=== PATIENT | male | born 1995 | race African-American/Black ===

== ENCOUNTER 2017-05-29 15:57 | Emergency (ER) | payer OTHER ==
[2017-05-29] MEDS ORDERED: LIDOCAINE 1% INJ-PF (10 MG/ML) 30 ML SDV INJ ONE (16:35)
[2017-05-29] MEDS ORDERED: AZITHROMYCIN 250 MG TABLET PO ONE (16:35)
[2017-05-29] MEDS ORDERED: PENICILLIN G BENZATHINE 1.2 MILLION UNIT/2 ML DISP.SYRIN IM ONE (16:35)
[2017-05-29] MEDS ORDERED: CEFTRIAXONE INJ 250 MG VIAL IM ONE (16:35)
--- NOTE | 2017-05-29 16:38 | ER Document Report ---
HPI - HPI Patient complains to provider of: Gonorrhea exposure Onset: Last week Onset/Duration: Gradual Quality of pain: Burning Pain Level: 1 Context: Patient presents reporting that he is ex-girlfriend told him that she tested positive for gonorrhea. Patient states that he has had some burning to the tip of the penis but denies any drainage or discharge. Patient denies any urinary symptoms. Associated Symptoms: Other - Burning to penis. denies: Fever Exacerbated by: Denies Relieved by: Denies Similar symptoms previously: No Recently seen / treated by doctor: No - ROS ROS below otherwise negative: Yes Systems Reviewed and Negative: Yes All other systems reviewed and negative - CONSTITUTIONAL Constitutional: DENIES: Fever - URINARY Urinary: DENIES: Dysuria - DERM Skin Color: Normal Skin Problems: None Past Medical History - General Information source: Patient - Social History Smoking Status: Current Every Day Smoker Frequency of alcohol use: Occasional Drug Abuse: None Occupation: [employer] Family History: Reviewed & Not Pertinent - Medical History Medical History: Negative Surgical Hx: Negative Vertical Provider Document - CONSTITUTIONAL Agree With Documented VS: Yes Exam Limitations: No Limitations General Appearance: WD/WN, No Apparent Distress - INFECTION CONTROL TRAVEL OUTSIDE OF THE [place] IN LAST 30 DAYS: No - HEENT HEENT: Atraumatic, Normocephalic - NECK Neck: Normal Inspection - RESPIRATORY Respiratory: Breath Sounds Normal, No Respiratory Distress O2 Sat by Pulse Oximetry: 99 - CARDIOVASCULAR Cardiovascular: Regular Rate, Regular Rhythm - REPRODUCTIVE Male Genitalia: Normal Inspection Notes: No testicular tenderness, no penile drainage or discharge. No inguinal lymphadenopathy. Normal cremasteric reflex. RN as standby during examination - MUSCULOSKELETAL/EXTREMETIES Musculoskeletal/Extremeties: MAEW - NEURO Level of Consciousness: Awake, Alert, Appropriate Motor/Sensory: No Motor Deficit - DERM Integumentary: Warm, Dry, No Rash Course - Re-evaluation Re-evalutation: 05/29/17 16:36 Offered patient testing for HIV as well as syphilis, patient declined. Patient encouraged to follow-up with the health department if he would like to have additional HIV testing. Patient states that he would like to be treated just in case for syphilis with the antibiotic. - Vital Signs Vital signs: Temp Pulse Resp BP Pulse Ox 98.8 F 73 18 117/72 99 05/29/17 16:07 05/29/17 16:07 05/29/17 16:07 05/29/17 16:07 05/29/17 16:07 Discharge - Discharge Clinical Impression: Concern about STD in male without diagnosis, Exposure to gonorrhea Condition: Stable Disposition: HOME, SELF-CARE Instructions: Azithromycin ([facility]), Gonorrhea ([facility]), Rocephin ([facility]) Additional Instructions: Return immediately for any new or worsening symptoms Followup with your primary care provider, call tomorrow to make a followup appointment Follow-up with the health department if you would like to have HIV testing. Safe sex practices [facility] - Follow up as needed
[2017-05-29 17:47] VITALS: BP 123/68
[2017-05-29 18:42] LABS: CHLAM PCR NOT DETECTED (NOT DETECT); GON PCR NOT DETECTED (NOT DETECT)
== END 2017-05-29 17:47 | disposition home or self-care (01) ==
LOC: ER 15:57
DX: Z20.2 Contact with and (suspected) exposure to infections with a predominantly sexual mode of transmission (principal); R10.2 Pelvic and perineal pain; F17.200 Nicotine dependence, unspecified, uncomplicated
CPT/HCPCS: 99283; 96372; 87491; 87591; J3490; J0561; J0696